=== PATIENT | female | born 1975 | race Caucasian/White ===

== ENCOUNTER 2022-09-10 17:22 | Inpatient (IN) | payer SELFPAY ==
[2022-09-10] MEDS ORDERED: HumaLOG 300 UNITS/3 ML VIAL SC PRN (22:52)
[2022-09-10] MEDS ORDERED: HYDROcodone/Acetaminophen 5/325 mg Tablet PO PRN (22:52)
[2022-09-10] MEDS ORDERED: Dextrose 50% Abboject 50 ML SYRINGE SLOW IVP PRN (22:52)
[2022-09-10] MEDS ORDERED: Dextrose 5% in Water 1,000 ML IV PRN (22:52)
[2022-09-10] MEDS ORDERED: Ondansetron PF 4 MG/2 ML Vial IVP PRN (22:52)
[2022-09-10] MEDS ORDERED: Ondansetron ODT 4 MG TAB PO PRN (22:52)
[2022-09-10] MEDS ORDERED: Acetaminophen 325 MG TAB PO PRN (22:52)
[2022-09-10 23:01] VITALS: BMI 35.1
[2022-09-10] MEDS: Piperacillin/Tazobactam 3.375 GM in Sodium Chloride 0.9% 100 ML IVPB SCH (23:56)
[2022-09-10] MEDS: HumaLOG 300 UNITS/3 ML VIAL SC PRN (23:56)
[2022-09-11] MEDS: VANCOMYCIN 1.25 GM/250 ML BAG 1.25 GM in Premix Bag 1 BAG IVPB SCH ×2 (00:04→12:13)
[2022-09-11] MEDS ORDERED: Morphine 2 MG/ML VIAL SLOW IVP PRN (00:12)
[2022-09-11] MEDS ORDERED: Sodium Chloride 0.9% 1,000 ML IV SCH (03:15)
[2022-09-11 06:36] LABS: Hemoglobin 12.1 g/dL (12.0-16.0); Mean Corpuscular HGB CONC 33.9 g/dL (32.0-36.0); Mean Corpuscular Hemoglobin 30.8 pg (27.0-31.0); Mean Corpuscular Volume 90.9 fl (78.0-98.0); Mean Platelet Volume 8.1 fL (7.4-10.4); Platelet Count 245 10x3/uL (130-400); RBC Distribution Width 14.2 % (11.5-14.5); Red Blood Cell (RBC) Count 3.92 mill/uL (4.20-5.40); White Blood Cell (WBC) Count 9.5 10x3/uL (4.8-10.8)
[2022-09-11 06:57] LABS: Anion Gap 16 mmol/L (10-20); BUN (Urea Nitrogen) 15 mg/dL (7.0-18.7); Calc. Creatinine Clearance 121 mL/min (70-130); Calcium 9.3 mg/dL (7.8-10.44); Carbon Dioxide 21 mmol/L (22-29); Chloride 101 mmol/L (98-107); Estimated GFR 74; Glucose 305 mg/dL (70-105); Potassium 4.2 mmol/L (3.5-5.1); Sodium 134 mmol/L (136-145)
[2022-09-11 07:37] LABS: #Basophils 0.1 thou/uL (0.0-0.2); #Eosinphils 0.4 thou/uL (0.0-0.7); #Monocytes 0.8 thou/uL (0.11-0.59); #Neutrophils 4.8 thou/uL (1.40-6.50); %Basophils 0.6 % (0.0-1.0); %Eosinophils 4.3 % (0.0-10.0); %Lymphocytes 39.4 % (21.0-51.0); %Neutrophils 47.7 % (42.0-75.0)
[2022-09-11] MEDS: Piperacillin/Tazobactam 3.375 GM in Sodium Chloride 0.9% 100 ML IVPB SCH ×3 (08:23→23:46)
[2022-09-11] MEDS ORDERED: Vancomycin 1 GM in Premix Bag 1 BAG IVPB SCH (09:00)
[2022-09-11 11:57] LABS: Vancomycin, Trough 12.5 ug/mL
[2022-09-11] MEDS: Vancomycin 1.5 GRAM/300 ML BAG 1.5 GM in Premix Bag 1 BAG IVPB SCH (12:33)
[2022-09-11] MEDS ORDERED: cloNIDine 0.1 MG TAB PO PRN (12:45)
[2022-09-11] MEDS ORDERED: Nitroglycerin 0.4 MG TAB (25 Tab Bottle) SL PRN (12:45)
[2022-09-11] MEDS ORDERED: Insulin Glargine 30 UNITS/0.3 ML VIAL SC SCH (13:30)
[2022-09-11] MEDS: HumaLOG 300 UNITS/3 ML VIAL SC PRN ×3 (13:44→20:33)
[2022-09-11] MEDS ORDERED: tiZANidine HCl 4 MG TAB PO SCH (14:00)
[2022-09-11] MEDS ORDERED: tiZANidine HCl 4 MG TAB PO PRN (14:30)
[2022-09-11] MEDS ORDERED: hydrOXYzine 25 MG TAB PO PRN (15:00)
[2022-09-11] MEDS ORDERED: hydrOXYzine 25 MG TAB PO SCH (15:00)
[2022-09-11] MEDS: metFORMIN 500 MG TAB PO SCH (20:34)
[2022-09-11] MEDS: lamoTRIgine 100 MG TAB PO SCH (20:35)
[2022-09-11] MEDS: Atorvastatin Calcium 40 MG TAB PO SCH (20:35)
[2022-09-11] MEDS: QUEtiapine 25 MG TAB PO SCH (20:35)
[2022-09-11] MEDS: Gabapentin 400 MG CAP PO SCH (20:35)
[2022-09-11] MEDS: TICAGRELOR 90 MG TABLET PO SCH (20:36)
[2022-09-11] MEDS: Venlafaxine HCl XR 150 MG CAP PO SCH (20:36)
[2022-09-12] MEDS: Vancomycin 1.5 GRAM/300 ML BAG 1.5 GM in Premix Bag 1 BAG IVPB SCH ×2 (00:06→12:14)
[2022-09-12] MEDS: HumaLOG 300 UNITS/3 ML VIAL SC PRN ×4 (05:48→20:17)
[2022-09-12] MEDS: Piperacillin/Tazobactam 3.375 GM in Sodium Chloride 0.9% 100 ML IVPB SCH ×2 (08:47→16:58)
[2022-09-12] MEDS: Insulin Glargine 30 UNITS/0.3 ML VIAL SC SCH (08:49)
[2022-09-12] MEDS: Furosemide 40 MG TAB PO SCH (08:50)
[2022-09-12] MEDS: Spironolactone 100 MG TAB PO SCH (08:50)
[2022-09-12] MEDS: Losartan 25 MG TAB PO SCH (08:50)
[2022-09-12] MEDS: Gabapentin 400 MG CAP PO SCH ×2 (08:50→20:08)
[2022-09-12] MEDS: Aspirin 81 mg Enteric Coated Tablet PO SCH (08:51)
[2022-09-12] MEDS: metFORMIN 500 MG TAB PO SCH ×2 (08:51→20:10)
[2022-09-12] MEDS: Multivitamin W/ Minerals 1 TAB PO SCH (08:51)
[2022-09-12] MEDS: Carvedilol 25 MG TAB PO SCH (08:52)
[2022-09-12] MEDS: Venlafaxine HCl 37.5 MG TAB PO SCH (08:52)
[2022-09-12] MEDS: Magnesium Oxide 400 MG TAB PO SCH (08:52)
[2022-09-12] MEDS: lamoTRIgine 100 MG TAB PO SCH ×2 (08:52→20:10)
[2022-09-12] MEDS: QUEtiapine 25 MG TAB PO SCH ×2 (08:52→20:09)
[2022-09-12] MEDS: Atorvastatin Calcium 40 MG TAB PO SCH (20:09)
[2022-09-12] MEDS: Venlafaxine HCl XR 150 MG CAP PO SCH (20:10)
[2022-09-13] MEDS: Piperacillin/Tazobactam 3.375 GM in Sodium Chloride 0.9% 100 ML IVPB SCH ×3 (00:13→16:48)
[2022-09-13] MEDS: Vancomycin 1.5 GRAM/300 ML BAG 1.5 GM in Premix Bag 1 BAG IVPB SCH ×2 (00:13→14:03)
[2022-09-13] MEDS: HumaLOG 300 UNITS/3 ML VIAL SC PRN (05:21)
[2022-09-13 07:31] VITALS: BP 154/91; TEMP 98.1
[2022-09-13] MEDS: Furosemide 40 MG TAB PO SCH (09:01)
[2022-09-13] MEDS: Insulin Glargine 30 UNITS/0.3 ML VIAL SC SCH (09:01)
[2022-09-13] MEDS: Gabapentin 400 MG CAP PO SCH (09:01)
[2022-09-13] MEDS: Aspirin 81 mg Enteric Coated Tablet PO SCH (09:01)
[2022-09-13] MEDS: Carvedilol 25 MG TAB PO SCH (09:01)
[2022-09-13] MEDS: Magnesium Oxide 400 MG TAB PO SCH (09:02)
[2022-09-13] MEDS: Losartan 25 MG TAB PO SCH (09:02)
[2022-09-13] MEDS: Spironolactone 100 MG TAB PO SCH (09:02)
[2022-09-13] MEDS: Multivitamin W/ Minerals 1 TAB PO SCH (09:02)
[2022-09-13] MEDS: TICAGRELOR 90 MG TABLET PO SCH (09:02)
[2022-09-13] MEDS: QUEtiapine 25 MG TAB PO SCH (09:02)
[2022-09-13] MEDS: lamoTRIgine 100 MG TAB PO SCH (09:03)
[2022-09-13] MEDS: metFORMIN 500 MG TAB PO SCH (09:03)
[2022-09-13] MEDS: Venlafaxine HCl 37.5 MG TAB PO SCH (09:03)
[2022-09-13 12:47] LABS: Vancomycin, Trough 14.5 ug/mL
[2022-09-13] MEDS ORDERED: Bacitracin 1 PK TOP SCH (14:15)
== END 2022-09-13 17:42 | disposition home or self-care (01) | DRG 638 ==
LOC: T4-A 22:11
PROVIDERS: ADMIT Internal Medicine; ATTEND Internal Medicine
DX: E11.69 Type 2 diabetes mellitus with other specified complication (principal); L03.115 Cellulitis of right lower limb; M86.171 Other acute osteomyelitis, right ankle and foot; E11.40 Type 2 diabetes mellitus with diabetic neuropathy, unspecified; E11.22 Type 2 diabetes mellitus with diabetic chronic kidney disease; I12.9 Hypertensive chronic kidney disease with stage 1 through stage 4 chronic kidney disease, or unspecified chronic kidney disease; N18.2 Chronic kidney disease, stage 2 (mild); K21.9 Gastro-esophageal reflux disease without esophagitis; I25.10 Atherosclerotic heart disease of native coronary artery without angina pectoris; F17.210 Nicotine dependence, cigarettes, uncomplicated; E66.9 Obesity, unspecified; E78.5 Hyperlipidemia, unspecified; F31.9 Bipolar disorder, unspecified; E11.621 Type 2 diabetes mellitus with foot ulcer; L97.519 Non-pressure chronic ulcer of other part of right foot with unspecified severity; Z88.8 Allergy status to other drugs, medicaments and biological substances; Z88.1 Allergy status to other antibiotic agents; Z91.041 Radiographic dye allergy status; Z79.82 Long term (current) use of aspirin; Z79.899 Other long term (current) drug therapy; Z79.84 Long term (current) use of oral hypoglycemic drugs; Z79.4 Long term (current) use of insulin; I25.2 Old myocardial infarction; Z68.35 Body mass index [BMI] 35.0-35.9, adult
CPT/HCPCS: 36415; 36416; 80048; 80202; 85025; 97139; J1815; J2543; J3370; J3490; J7050